=== PATIENT | female | born 1945 | race Caucasian/White ===

== ENCOUNTER → 2017-09-16 | Outpatient (CLI) | payer OTHER, MEDICARE | LOC: BMCIMAGING 12:19 | PROVIDERS: ATTEND Internal Medicine | DX: M43.12 Spondylolisthesis, cervical region (principal); M47.812 Spondylosis without myelopathy or radiculopathy, cervical region; M48.02 Spinal stenosis, cervical region; M81.0 Age-related osteoporosis without current pathological fracture ==

== ENCOUNTER → 2017-09-19 | Outpatient (CLI) | payer OTHER, MEDICARE | LOC: FIMAGING 13:24 | DX: Z12.31 Encounter for screening mammogram for malignant neoplasm of breast (principal) | CPT/HCPCS: G0202 ==

== ENCOUNTER → 2017-11-13 | Outpatient (CLI) | payer OTHER, MEDICARE | LOC: FIMAGING 10:47 | PROVIDERS: ATTEND Internal Medicine | DX: R92.8 Other abnormal and inconclusive findings on diagnostic imaging of breast (principal) ==

== ENCOUNTER → 2017-12-01 | Outpatient (CLI) | payer OTHER, MEDICARE ==
[~2017-12-01] MED LIST: BUPIVACAINE 0.5% 10 ML SDV ONE; LIDOCAINE 1% 300 MG/30 ML SDV ONE; THROMBIN (BOVINE) 5,000 UNIT VIAL TP ONE
== END ==
LOC: FIMAGING 07:24
PROVIDERS: ATTEND Internal Medicine
PROC: 0HBT3ZX Excision of Right Breast, Percutaneous Approach, Diagnostic (ICD-10-PCS; principal; 2017-12-01)
DX: N63.13 Unspecified lump in the right breast, lower outer quadrant (principal)

== ENCOUNTER 2017-12-19 08:20 | Day surgery (SDC) | payer OTHER, MEDICARE ==
[2017-12-19] MEDS ORDERED: ceFAZolin 2 GM/SWFI 2 GM/20 ML SYR IVP ONE (09:26)
[2017-12-19] MEDS ORDERED: LR 1,000 ML IV SCH (09:26)
[2017-12-19] MEDS ORDERED: LR 1,000 ML IV ONE (09:52)
[2017-12-19] MEDS ORDERED: BUPIVACAINE 0.25% 30 ML SDV ONE (11:38)
--- NOTE | 2017-12-19 13:02 | PDANEPAE ---
ANE History of Present Illness partial mastectomy ANE Past Medical History - Cardiovascular History Hx Hypertension: No Hx Arrhythmias: No Hx Chest Pain: No Hx Coronary Artery / Peripheral Vascular Disease: No Hx CHF / Valvular Disease: Yes Hx Palpitations: No Cardiovascular History Comment: MR - Pulmonary History Hx COPD: No Hx Asthma/Reactive Airway Disease: No Hx Recent Upper Respiratory Infection: No Hx Oxygen in Use at Home: No Hx Sleep Apnea: No Sleep Apnea Screening Result - Last Documented: Negative - Neurologic History Hx Cerebrovascular Accident: No Hx Seizures: No Hx Dementia: No - Endocrine History Hx Diabetes: No - Renal History Hx Renal Disorders: No - Liver History Hx Hepatic Disorders: No - Neurological & Psychiatric Hx Hx Neurological and Psychiatric Disorders: No - Cancer History Hx Cancer: Yes Cancer History Comment: ovarian. plasmoystic lymphoma - Congenital Disorder History Hx Congenital Disorders: No - GI History Hx Gastrointestinal Disorders: No - Other Health History Other Health History: none - Chronic Pain History Chronic Pain: No - Surgical History Prior Surgeries: previous biopsy ANE Review of Systems Review of Systems: - Exercise capacity METS (RN): 4 METS ANE Patient History - Allergies Allergies/Adverse Reactions: clindamycin Allergy (Intermediate, Verified 12/19/17 11:51) Other-Enter Comments Iodinated Contrast- Oral and IV Dye Allergy (Intermediate, Verified 12/19/17 11: 51) Other-Enter Comments meperidine HCl [From Demerol] Allergy (Mild, Verified 12/19/17 11:51) "wakes me up" - Home Medications Home Medications: NK [No Known Home Meds] 06/03/16 [Last Taken Unknown] - NPO status NPO Status: no food or drink >8 hours NPO Since - Liquids (Date): 12/18/17 NPO Since - Liquids (Time): 08:30 NPO Since - Solids (Date): 12/18/17 NPO Since - Solids (Time): 21:00 - Anes Hx Anes Hx: no prior problems - Smoking Hx Smoking Status: Never smoked - Alcohol Use Alcohol Use: None - Family Anes Hx Family Anes Hx: none Family Hx Anesthesia Complications: sister has N/V ANE Labs/Vital Signs - Vital Signs Blood Pressure: 150/73 Heart Rate: 82 Respiratory Rate: 16 O2 Sat (%): 94 Height: 170.18 cm Weight: 49.895 kg ANE Physical Exam - Airway Neck exam: FROM Mallampati Score: Class 2 Mouth exam: normal dental/mouth exam - Pulmonary Pulmonary: no respiratory distress, clear to auscultation - Cardiovascular Cardiovascular: regular rate and rhythym, no murmur, rub, or gallop - ASA Status ASA Status: III ANE Anesthesia Plan Anesthesia Plan: GA w LMA
[2017-12-19] MEDS ORDERED: PROPOFOL/EMULSION 500 MG/50 ML BOTTLE IV ONE (13:07)
[2017-12-19] MEDS ORDERED: PROPOFOL 200 MG/20 ML VIAL ONE (13:07)
[2017-12-19] MEDS ORDERED: fentaNYL 100 MCG/2 ML INJ ONE (13:07)
[2017-12-19] MEDS ORDERED: LIDOCAINE 2% 5 ML SDV ONE (13:15)
--- NOTE | 2017-12-19 13:17 | PDHPUP ---
History & Physical Update H&P update statement: This history and physical update is based on an assessment of the patient which was completed after admission or registration (within 24 hours), but prior to the surgery/procedure. H&P update: H&P reviewed & patient examined, no change in patient's condition since H&P completed
[2017-12-19] MEDS ORDERED: DEXAMETHASONE 4 MG/ML VIAL ONE (13:41)
[2017-12-19] MEDS ORDERED: ONDANSETRON 4 MG/2 ML VIAL ONE ×3 (13:57→14:31)
[2017-12-19] MEDS ORDERED: ACETAMINOPHEN 500 MG TAB PO PRN (14:25)
[2017-12-19] MEDS ORDERED: OXYCODONE/APAP 5/325 TAB PO PRN (14:25)
[2017-12-19] MEDS ORDERED: ONDANSETRON 4 MG/2 ML VIAL IVP PRN (14:25)
[2017-12-19] MEDS ORDERED: HYDROmorphONE/DILAUDID 1 MG/ML INJ IVP PRN (14:25)
[2017-12-19] MEDS ORDERED: NALOXONE HCL 0.4 MG/ML INJ IVP PRN (14:25)
[2017-12-19] MEDS ORDERED: HYDROCODONE/APAP 5/325 TAB PO PRN ×2 (14:25→15:28)
[2017-12-19] MEDS ORDERED: fentaNYL 100 MCG/2 ML INJ IVP PRN (14:25)
[2017-12-19] MEDS ORDERED: PROMETHAZINE HCL 25 MG/ML INJ IVP PRN (14:25)
[2017-12-19] MEDS ORDERED: AVITENE POWDER 1 GM JAR TP ONE (14:37)
--- NOTE | 2017-12-19 15:08 | POSTANESTH ---
Post Anesthetic Evaluation Cardiovascular Status: Normal, Stable, Similar to Pre-Op Cond Respiratory Status: Normal, Stable, Similar to Pre-op Cond. Level of Consciousness/Mental Status: Can Participate in Eval, Alert and Oriented Pain Control: Adequate, Prn Tx Ordered Nausea/Vomiting Control: Adequate, Prn Tx Ordered Complications Possibly Related to Anesthesia: None Noted
--- NOTE | 2017-12-19 15:33 | POSTOPPROG ---
Post Op Note Date of Operation: 12/19/17 Surgeon: Gómez Escalante (, FACS) Applications Analyst: Jay Addison RN-FA Anesthesiologist: Sundar Cordova MD Anesthesia: GET(General Endotracheal), LMA Pre-op Diagnosis: right breast cancer Post-op Diagnosis: same Procedure: right partial mastectomy/SLN bx/ Findings: 2 sentinel nodes neg by frozen Inf/Abcess present in the surg proc area at time of surgery?: No EBL: Minimal (25 ml) Specimen(s): right partial mastectomy + additional ant/superior skin margin 2 sentinel nodes, axillary
[2017-12-19 15:38] VITALS: PULSE 73; RESP 17; TEMP 94.6
[2017-12-19 16:11] VITALS: O2SAT 95
[2017-12-19 17:04] VITALS: BP 114/53
--- NOTE | 2017-12-19 22:58 | GOP ---
[f rep st] OPERATIVE REPORT DATE OF OPERATION: 12/19/2017 SURGEON: Gómez Escalante MD, FACS COMMUNICATIONS PROFESSOR: BLAINE Humphrey. ANESTHESIA: General endotracheal by laryngeal mask. ANESTHESIOLOGIST: Sundar Cordova MD. PREOPERATIVE DIAGNOSIS: Right breast carcinoma. POSTOPERATIVE DIAGNOSIS: Right breast carcinoma. PROCEDURE PERFORMED: 1. Right partial mastectomy. 2. [place] lymph node mapping and biopsy of right axillary lymph nodes x2. 3. Adjacent tissue transfer for immediate reconstruction. FINDINGS: 2 out of 2 sentinel nodes were negative by frozen section for evidence of malignancy. The primary right lower outer quadrant tumor was submitted for specimen mammogram, containing the previously deployed clip. Because this was close to the skin surface, a second portion of skin at the superior anterior margin was excised and submitted for permanent section. ESTIMATED BLOOD LOSS: 25 mL. DESCRIPTION OF PROCEDURE: After informed consent was obtained, the patient was brought to the operating room and placed under general anesthesia. The right breast was prepped and draped in the usual sterile fashion. Before proceeding, a time-out identification of patient was performed. She had undergone preoperative sentinel lymph node injection but did not visualize sentinel nodes on lymphoscintigraphy. The gamma detector was used to identify the point of maximum activity in the lower axilla, and the skin was marked with a marking pen. The breast mass was palpable and was in the lower-outer quadrant with some puckering of the skin. Before proceeding, a time-out identification of the patient was performed. The axillary site was infiltrated with 0.25% Marcaine, incised transversely, and dissection carried out through the skin, subcutaneous tissues, and deep axillary fascia. Hemostasis was secured with cautery. The Neoprobe-Gamma Detector was used to guide dissection to the first sentinel node which had counts over 2000. The node appeared mildly fatty replaced and did not appear suspicious. It measured approximately 1 x 1.5 cm. This was labeled sentinel node #1. Lymphovascular structures were hemoclipped and divided, and the node was delivered from the field. A second sentinel node with counts in the 250 counts per minute range was identified, smaller than the first. This was excised in a similar fashion and submitted for frozen section. Hemostasis appeared secure within the axilla. While we were waiting for the results of the sentinel node, right partial mastectomy was performed as follows. A skin incision was marked on the skin with a marking pen and infiltrated with 0.25% Marcaine. An elliptical incision was made encompassing the tumor as well as the dimpling of the skin. After the incision was made, deep dissection was performed using primarily cautery excising the mass with a rim of normal surrounding breast tissue of approximately 10 to 15 mm in thickness. This extended to the deep margin of the breast but did not include the pectoralis fascia. Hemostasis was secured with cautery. The specimen was removed from the field and tagged for orientation with a MarginMarker kit, individually identifying the anterior, posterior, superior, inferior, medial, and lateral margins. The superior anterior margin appeared closest at the skin level, and additional skin was excised cephalad measuring approximately 6 to 7 mm in width , and this was marked carefully with red ink along the final superior anterior margin. The breast cavity was partially closed using adjacent tissue transfer technique as follows. The deep subcutaneous tissues and breast tissue were dissected from the superficial subcutaneous fatty tissues circumferentially using cautery dissection. There was the least amount of tissue present at the inframammary fold, and so less mobilization occurred here, and most of the mobilization occurred up to the subareolar plane cephalad and for 2 to 3 cm in all directions medial, lateral, and inferiorly. These liberated breast tissues were then used to cantilever over the defect. Topical Avitene was placed within the cavity to assist with hemostasis and to provide some bulk to the cavity. The adjacent tissue transfer was completed with approximation of the flaps with interrupted 3-0 Monocryl suture. Subcutaneous tissues were closed with 3-0 Monocryl suture, and the skin of both incisions was closed with 4-0 Monocryl suture in a subcuticular fashion. Specimen mammogram had been reported to contain the clip and tumor, and the axillary nodes had been reported to be negative by frozen section. Topical Mastisol and Steri-Strips were applied. Sterile dressings were placed. The patient was returned extubated to the recovery room in satisfactory condition. Needle, sponge, and instrument counts were correct. COMPLICATIONS: None. /[id number]/MODL MTDD
== END 2017-12-19 17:00 | disposition home or self-care (01) ==
LOC: FSGY 08:20
PROVIDERS: ATTEND Surgery
PROC: 0HBT0ZZ Excision of Right Breast, Open Approach (ICD-10-PCS; principal; 2017-12-19 11:30)
PROC: 07B50ZX Excision of Right Axillary Lymphatic, Open Approach, Diagnostic (ICD-10-PCS; principal; 2017-12-19 11:30)
DX: C50.911 Malignant neoplasm of unspecified site of right female breast (principal)
CPT/HCPCS: J0690; J1100; J2405; J2704; J3010

== ENCOUNTER → 2017-12-19 | Outpatient (CLI) | payer OTHER, MEDICARE | LOC: FIMAGING 07:15 | PROVIDERS: ATTEND Surgery | DX: C50.911 Malignant neoplasm of unspecified site of right female breast (principal) | CPT/HCPCS: 76098; 78195; A9520 ==

== ENCOUNTER → 2018-09-25 | Outpatient (CLI) | payer OTHER, MEDICARE | LOC: BMCIMAGING 12:05 | PROVIDERS: ATTEND Emergency Medicine | DX: M54.5 Low back pain (principal) ==

== ENCOUNTER 2018-12-25 07:16 | Inpatient (IN) | payer OTHER, MEDICARE ==
--- NOTE | 2018-12-25 07:29 | EDPHY ---
H & P Stated Complaint: Chest Pain Time Seen by Provider: 12/25/18 07:29 - Personal History Current Tetanus/Diphtheria Vaccine: Yes - Medical/Surgical History Hx Asthma: No Hx Chronic Respiratory Disease: No Hx Diabetes: No Hx Cardiac Disease: No Hx Renal Disease: No Hx Cirrhosis: No Hx Alcoholism: No Other PMH: lymphoma - Social History Smoking Status: Never smoked Constitutional: Initial Vital Signs Temperature (C) 36.9 C 12/25/18 07:20 Heart Rate 89 12/25/18 07:20 Respiratory Rate 18 12/25/18 07:20 Blood Pressure 167/91 H 12/25/18 07:20 O2 Sat (%) 99 12/25/18 07:20 O2 Delivery Mode Room Air Allergies/Adverse Reactions: clindamycin Allergy (Intermediate, Verified 12/25/18 07:25) Other-Enter Comments Iodinated Contrast- Oral and IV Dye Allergy (Intermediate, Verified 12/25/18 07: 25) Other-Enter Comments meperidine HCl [From Demerol] Allergy (Mild, Verified 12/25/18 07:25) "wakes me up" Home Medications: Medication Instructions Recorded Cholecalciferol Vit D3 [Vitamin D3 1,000 units PO DAILY 12/25/18 (*)] Cyanocobalamin [Vitamin B12 (*)] 1,000 mcg PO DAILY 12/25/18 Herbals/Supplements -Info Only 1 ea PO DAILY 12/25/18 Ibuprofen [Motrin (*)] 200 mg PO DAILY PRN 12/25/18 Tears/Dextran 70/Hypromellose 1 drop EACHEYE Q2 PRN 12/25/18 [Natural Balance Tears (*)] Medical Decision Making - Diagnostics Imaging Results: Imaging Impressions Extremity Venous Study 12/25/18 07:40 Impression: No evidence of vein thrombosis in the left arm. Results called and discussed with Philippe Ruth MD at 12/25/2018 8:56. Chest/Thorax CTA 12/25/18 08:15 Impression: No acute pulmonary embolus. Findings and recommendations discussed with Philippe Ruth MD at 945 hour, . Imaging: Discussed imaging studies w/ commis chef Radiologist ED Course/Re-evaluation: CHIEF COMPLAINT: Chest pain, left arm pain, rash HISTORY OF PRESENT ILLNESS: The patient is a 73 y/o female with a history of breast cancer arriving with her complaining of left arm pain for the last 10 days and chest pain and rash onset this morning. She had a blood draw performed 1.5 weeks ago in her left AC and has had persistent pain in that arm since then, sometimes associated with lightheadedness and nausea. This morning she woke with chest pain across her upper chest and a painful rash along her left upper back. She denies associated shortness of breath, vomiting, diarrhea, fever, syncope, weakness, paresthesias. She mentions a recent imaging study showed splenomegaly. REVIEW OF SYSTEMS: A comprehensive 10 system review of systems is otherwise negative aside from elements mentioned in the history of present illness and medical decision making. PHYSICAL EXAM: HR, BP, O2 Sat, RR. Temp noted General Appearance: Alert, well hydrated, appropriate, and non-toxic appearing. Head: Atraumatic without scalp tenderness or obvious injury Eyes: Pupils equal, round, reactive to light and accommodation, EOMI, no trauma , no injection. Nose: Atraumatic, no rhinorrhea, clear. Throat: There is no erythema or exudates, no lesions, normal tonsils, mucus membranes moist. Neck: Supple, nontender, no lymphadenopathy. Respiratory: No retractions, no distress, no wheezes, and no accessory muscle use. Lungs are clear to auscultation bilaterally. Cardiovascular: Regular rate and rhythm, no murmurs, rubs, or gallops. Good capillary refill all extremities. Gastrointestinal: Abdomen is soft, nontender, non-distended, no masses, no rebound, no guarding, no peritoneal signs. Musculoskeletal: Normal active ROM of all extremities, atraumatic. Neurological: Alert, appropriate, and interactive. The patient has non-focal cranial nerves, motor, sensory, and cerebellar exam. Skin: Vesicular rash on erythematous base on left upper thoracic back in dermatome distribution, good turgor, no nodules on palpation. Past medical history: Shingles x3, right breast carcinoma, splenomegaly Past surgical history: Right partial mastectomy and lymph node biopsy with Dr. Escalante. Family history: Noncontributory Social history: at bedside. Nonsmoker. Prior medical records reviewed including surgical note 12/19/17. DIAGNOSTICS/PROCEDURES/CRITICAL CARE TIME: The 12 lead EKG was interpreted by myself. Sinus mechanism, rate 88. See hard copy and/or "tracemaster" electronic copy for interpretation. Left arm US: no DVT per Dr. Hua, radiologist. Chest CTA: negative DIFFERENTIAL DIAGNOSIS: The differential diagnosis for the patient's chest pain included but was not limited to myocardial ischemia, pulmonary embolus, chest wall pain, pleural inflammation, and pulmonary infectious causes. MEDICAL DECISION MAKING: This is a 73 y/o female with a history of breast cancer who presents with a 1.5-week history of left arm pain, nausea, and lightheadedness following a blood draw and today developed upper chest pain and a vesicular rash along her left upper thoracic back. This rash is consistent with shingles and appears only in one dermatome, which could be the cause of her chest and arm pain. Her left AC veins are soft, so I doubt superficial thrombophlebitis or DVT, but due to symptoms and cancer history will rule out with US. She has no reproducible chest tenderness and lungs are clear to auscultation. Plan for IV, labs, EKG, left arm US. 1000mg PO Valacyclovir ordered. 0815: POC sodium is 117, will confirm this with lab chemistries. D-dimer is elevated at 2.00. Chest CTA ordered. US in progress. Lab sodium confirms hyponatremia at 117. Urine osmolality ordered. No IV fluids have been administered yet and we will continue to hold these. Looking through past records, patient has been slightly hyponatremic previously around 125-130, but never this low. 0840: Reassessed patient and discussed findings. Recommended admission for hyponatremia, which she agrees to. Spoke with hospitalist service. Dr. Morgan accepts admission. Nephrology paged. Patient has an iodinated contrast allergy listed in her chart, but says in the remote past when she has had contrast she developed some lymph node soreness. She does not describe allergic reaction symptoms. We will not pretreat with Solumedrol, as this will cause issues with any future ACTH stim testing. 0905: Consulted with Dr. Mcfadden, nephrology. She agrees with treatment course and will consult during admission. CT angiography is unremarkable according to Dr. Neal. 1025: Patient is complaining of leg cramping. 1gm IV Magnesium Sulfate ordered. - Data Points Laboratory Results: Laboratory Results 12/25/18 07:40 12/25/18 07:40 12/25/18 12/25/18 12/25/18 08:13 07:45 07:40 WBC RBC Hgb POC Hgb 11.6 gm/dL L gm/dL (12.6-16.3) Hct POC Hct 34 % L % (38-47) MCV MCH MCHC RDW Plt Count MPV Neut % (Auto) Lymph % (Auto) [place] % (Auto) Eos % (Auto) Baso % (Auto) Nucleat RBC Rel Count Absolute Neuts (auto) Absolute Lymphs (auto) Absolute Monos (auto) Absolute Eos (auto) Absolute Basos (auto) Absolute Nucleated RBC Immature Gran % Seg Neutrophils % Band Neutrophils % Lymphocytes % Monocytes % Eosinophils % Basophils % Metamyelocytes % Myelocytes % Promyelocytes % Blast Cells % Immature Gran # Absolute Seg Neuts Absolute Band Neuts Absolute Lymphocytes Absolute Monocytes Absolute Eosinophils Absolute Basophils Absolute Metamyelocyte Absolute Myelocytes Absolute Promyelocytes Absolute Plasma Cells Nucleated RBCs Atypical Lymphocytes Absolute Blast Cells Plasma Cells % Platelet Estimate Polychromasia Hypochromasia Smear Review By D-Dimer POC Sodium 117 mEq/L L* mEq/L (135-145) Sodium 117 mEq/L L* mEq/L (135-145) POC Potassium 3.5 mEq/L mEq/L (3.3-5.0) Potassium 3.9 mEq/L mEq/L (3.5-5.2) POC Chloride 81 mEq/L L mEq/L (97-110) Chloride 83 mEq/L L mEq/L (97-110) Carbon Dioxide 21 mEq/l L mEq/l (22-31) POC Total CO2 22 mEq/L mEq/L (22-31) Anion Gap 13 mEq/L mEq/L (6-14) POC BUN 5 mg/dL L mg/dL (7-23) BUN 7 mg/dL mg/dL (7-23) Creatinine 0.4 mg/dL L mg/dL (0.6-1.0) POC Creatinine 0.4 mg/dL L mg/dL (0.6-1.0) Estimated GFR > 60 Glucose 100 mg/dL mg/dL (70-100) POC Glucose 98 mg/dL mg/dL (70-100) Calcium 8.8 mg/dL mg/dL (8.5-10.4) POC Troponin I 0.00 ng/mL ng/mL (0.00-0.08) 12/25/18 12/25/18 07:40 07:40 WBC 12.48 10^3/uL H 10^3/uL (3.80-9.50) RBC 3.53 10^6/uL L 10^6/uL (4.18-5.33) Hgb 10.4 g/dL L g/dL (12.6-16.3) POC Hgb Hct 30.0 % L % (38.0-47.0) POC Hct MCV 85.0 fL fL (81.5-99.8) MCH 29.5 pg pg (27.9-34.1) MCHC 34.7 g/dL g/dL (32.4-36.7) RDW 13.3 % % (11.5-15.2) Plt Count 160 10^3/uL 10^3/uL (150-400) MPV 10.2 fL fL (8.7-11.7) Neut % (Auto) Not Reported Lymph % (Auto) Not Reported [place] % (Auto) Not Reported Eos % (Auto) Not Reported Baso % (Auto) Not Reported Nucleat RBC Rel Count Not Reported Absolute Neuts (auto) Not Reported Absolute Lymphs (auto) Not Reported Absolute Monos (auto) Not Reported Absolute Eos (auto) Not Reported Absolute Basos (auto) Not Reported Absolute Nucleated RBC Not Reported Immature Gran % Not Reported Seg Neutrophils % 36.0 % % Band Neutrophils % 0.0 % % Lymphocytes % 57.0 % % Monocytes % 7.0 % % Eosinophils % 0.0 % % Basophils % 0.0 % % Metamyelocytes % 0.0 % % Myelocytes % 0.0 % % Promyelocytes % 0.0 % % Blast Cells % 0.0 % % Immature Gran # Not Reported Absolute Seg Neuts 4.49 10^3/uL 10^3/uL (1.70-6.50) Absolute Band Neuts 0.00 10^3/uL 10^3/uL (0.00-0.70) Absolute Lymphocytes 7.11 10^3/uL H 10^3/uL (1.00-3.00) Absolute Monocytes 0.87 10^3/uL H 10^3/uL (0.30-0.80) Absolute Eosinophils 0.00 10^3/uL L 10^3/uL (0.03-0.40) Absolute Basophils 0.00 10^3/uL L 10^3/uL (0.02-0.10) Absolute Metamyelocyte 0.00 10^3/mL 10^3/mL (0.00-0.00) Absolute Myelocytes 0.00 10^3/mL 10^3/mL (0.00-0.00) Absolute Promyelocytes 0.00 10^3/uL 10^3/uL (0.00-0.00) Absolute Plasma Cells 0.00 10^3/uL 10^3/uL (0.00-0.00) Nucleated RBCs 0 /100 WBC /100 WBC (0-0) Atypical Lymphocytes 2+ H Absolute Blast Cells 0.00 10^3/uL 10^3/uL (0.00-0.00) Plasma Cells % 0.0 % % Platelet Estimate ADEQUATE (ADEQ) Polychromasia 1+ H Hypochromasia 1+ H Smear Review By Pending D-Dimer 2.00 ug/mLFEU H ug/mLFEU (0.00-0.50) POC Sodium Sodium POC Potassium Potassium POC Chloride Chloride Carbon Dioxide POC Total CO2 Anion Gap POC BUN BUN Creatinine POC Creatinine Estimated GFR Glucose POC Glucose Calcium POC Troponin I Medications Given: Discontinued Medications Diphenhydramine HCl (Benadryl Injection) 25 mg IVP EDNOW ONE Stop: 12/25/18 09:03 Last Admin: 12/25/18 09:12 Dose: 25 mg Methylprednisolone Sodium Succinate (Solu-Medrol) 125 mg IVP EDNOW ONE Stop: 12/25/18 09:03 Last Admin: 12/25/18 09:39 Dose: Not Given Valacyclovir HCl (Valtrex) 1,000 mg PO EDNOW ONE Stop: 12/25/18 07:38 Last Admin: 12/25/18 07:47 Dose: 1,000 mg Point of Care Test Results: Chemistry 12/25/18 12/25/18 08:13 07:45 POC Sodium 117 mEq/L L* mEq/L (135-145) POC Potassium 3.5 mEq/L mEq/L (3.3-5.0) POC Chloride 81 mEq/L L mEq/L (97-110) POC Total CO2 22 mEq/L mEq/L (22-31) POC BUN 5 mg/dL L mg/dL (7-23) POC Creatinine 0.4 mg/dL L mg/dL (0.6-1.0) POC Glucose 98 mg/dL mg/dL (70-100) POC Troponin I 0.00 ng/mL ng/mL (0.00-0.08) ISTAT H&H 12/25/18 08:13 POC Hgb 11.6 gm/dL L gm/dL (12.6-16.3) POC Hct 34 % L % (38-47) Departure - Departure Disposition: [facility] Inpatient Acute Clinical Impression: Hyponatremia Chest pain Qualifiers: Chest pain type: other chest pain Qualified Code(s): R07.89 - Other chest pain Condition: Fair Report Scribed for: Philippe Ruth Report Scribed by: Geneva Albert Date of Report: 12/25/18 Time of Report: 07:49
[2018-12-25] MEDS ORDERED: valACYclovir 500 MG TAB PO ONE (07:37)
[2018-12-25 08:19] LABS: PLATELET COUNT 160 10^3/uL (150-400)
[2018-12-25] MEDS ORDERED: methylPREDNISolone SOD SUCC 125 MG/2 ML VIAL ONE (09:02)
[2018-12-25] MEDS ORDERED: methylPREDNISolone SOD SUCC 125 MG/2 ML VIAL IVP ONE (09:02)
[2018-12-25] MEDS ORDERED: IOHEXOL 350mgI/ML (OMNIPAQUE) 150 ML BTL IV ONE (09:18)
[2018-12-25] MEDS ORDERED: MAGNESIUM SULF 1 GM/DEXTROSE 100 ML IV ONE (10:25)
[2018-12-25] MEDS ORDERED: ACETAMINOPHEN 325 MG TAB PO PRN (11:17)
[2018-12-25] MEDS ORDERED: ONDANSETRON DISINTEGRATING 4 MG TAB PO PRN (11:17)
[2018-12-25] MEDS ORDERED: ONDANSETRON 4 MG/2 ML VIAL IVP PRN (11:17)
[2018-12-25] MEDS ORDERED: TEARS/DEXTRAN 70/HYPROMELLOSE 15 ML OPHT.BTL EACHEYE PRN (11:18)
[2018-12-25] MEDS ORDERED: IBUPROFEN 200 MG TAB PO PRN (11:18)
--- NOTE | 2018-12-25 11:18 | CPEKG ---
Test Reason : OPEN Blood Pressure : / mmHG Vent. Rate : 088 BPM Atrial Rate : 088 BPM P-R Int : 136 ms QRS Dur : 089 ms QT Int : 367 ms P-R-T Axes : 082 072 067 degrees QTc Int : 444 ms Sinus rhythm Abnormal R-wave progression, early transition Confirmed by Philippe Ruth ([id number]) on 12/25/2018 11:18:00 AM Referred By: Philippe Ruth Confirmed By:Philippe Ruth
--- NOTE | 2018-12-25 11:29 | PDCONSULT ---
[employer] Note: Assessment/Plan: Hyponatremia: chronic, seems like she has large fluid intake and poor solute intake. However, she may also have some underlying degree of SIADH as well. - Will fluid restrict to 1200ml daily. - Will give 2g sodium chloride orally now. - Encouraged pt to eat. - Will continue to monitor q3h for now. Thank you for the interesting consult. Nephrology will continue to follow, please call if you have any additional questions or concerns. H & P Stated Complaint: Chest Pain Time Seen by Provider: 12/25/18 07:29 HPI/ROS: HPI: Ms. Castillo is a 73 yo F with h/o hyponatremia who presents to ER today with complaints of chest pain and was found to have hyponatremia with sodium down to 117. She has chronic hyponatremia, for the past 9 years Na has ranged 127-132, was down to 125 when labs checked 10 days ago, but pt not aware of that. Pt states that she has not been taking any diuretics. She has been on NSAIDs for the past few days for pain in her L arm, has been taking an NSAID every 6-8 hours at home for at least 4 days. She drinks a lot of water at home, sounds like at least 2.5L that she can tell me and probably more than that. She does not eat very much, which explains such low solute levels in her. ROS: positive per HPI, rest of 10-point ROS negative Source: Patient - Personal History Current Tetanus/Diphtheria Vaccine: Yes - Medical/Surgical History Hx Asthma: No Hx Chronic Respiratory Disease: No Hx Diabetes: No Hx Cardiac Disease: No Hx Renal Disease: No Hx Cirrhosis: No Hx Alcoholism: No Other PMH: lymphoma. R breast carcinoma s/p partial mastectomy in 12/2017 - Family History Significant Family History: Other (mother with hyponatremia) - Social History Smoking Status: Never smoked - Physical Exam Exam: General: alert and oriented, no acute distress Eyes: EOMI, PERRL OP: Clear, MMM CV: RRR, no edema BLE Resp: CTA bilat, nonlabored respirations on RA Abd: Soft, NT/ND Neuro: CN II-XII Grossly intact, no asterixis Psych: cooperative, appropriate mood and affect Skin: C/D/I, +shingles on L upper back Constitutional: Initial Vital Signs Temperature (C) 36.9 C 12/25/18 07:20 Heart Rate 89 12/25/18 07:20 Respiratory Rate 18 12/25/18 07:20 Blood Pressure 167/91 H 12/25/18 07:20 O2 Sat (%) 99 12/25/18 07:20 O2 Delivery Mode Room Air Allergies/Adverse Reactions: clindamycin Allergy (Intermediate, Verified 12/25/18 07:25) Other-Enter Comments Iodinated Contrast- Oral and IV Dye Allergy (Intermediate, Verified 12/25/18 07: 25) Other-Enter Comments meperidine HCl [From Demerol] Allergy (Mild, Verified 12/25/18 07:25) "wakes me up" Home Medications: Medication Instructions Recorded Cholecalciferol Vit D3 [Vitamin D3 1,000 units PO DAILY 12/25/18 (*)] Cyanocobalamin [Vitamin B12 (*)] 1,000 mcg PO DAILY 12/25/18 Herbals/Supplements -Info Only 1 ea PO DAILY 12/25/18 Ibuprofen [Motrin (*)] 200 mg PO DAILY PRN 12/25/18 Tears/Dextran 70/Hypromellose 1 drop EACHEYE Q2 PRN 12/25/18 [Natural Balance Tears (*)] Lab and Imaging 12/25/18 07:40 12/25/18 07:40 WBC 12.48 10^3/uL (3.80-9.50) H 12/25/18 07:40 RBC 3.53 10^6/uL (4.18-5.33) L 12/25/18 07:40 Hgb 10.4 g/dL (12.6-16.3) L 12/25/18 07:40 POC Hgb 11.6 gm/dL (12.6-16.3) L 12/25/18 08:13 Hct 30.0 % (38.0-47.0) L 12/25/18 07:40 POC Hct 34 % (38-47) L 12/25/18 08:13 MCV 85.0 fL (81.5-99.8) 12/25/18 07:40 MCH 29.5 pg (27.9-34.1) 12/25/18 07:40 MCHC 34.7 g/dL (32.4-36.7) 12/25/18 07:40 RDW 13.3 % (11.5-15.2) 12/25/18 07:40 Plt Count 160 10^3/uL (150-400) 12/25/18 07:40 MPV 10.2 fL (8.7-11.7) 12/25/18 07:40 Neut % (Auto) Not Reported 12/25/18 07:40 Lymph % (Auto) Not Reported 12/25/18 07:40 Dane % (Auto) Not Reported 12/25/18 07:40 Eos % (Auto) Not Reported 12/25/18 07:40 Baso % (Auto) Not Reported 12/25/18 07:40 Nucleat RBC Rel Count Not Reported 12/25/18 07:40 Absolute Neuts (auto) Not Reported 12/25/18 07:40 Absolute Lymphs (auto) Not Reported 12/25/18 07:40 Absolute Monos (auto) Not Reported 12/25/18 07:40 Absolute Eos (auto) Not Reported 12/25/18 07:40 Absolute Basos (auto) Not Reported 12/25/18 07:40 Absolute Nucleated RBC Not Reported 12/25/18 07:40 Immature Gran % Not Reported 12/25/18 07:40 Seg Neutrophils % 36.0 % 12/25/18 07:40 Band Neutrophils % 0.0 % 12/25/18 07:40 Lymphocytes % 57.0 % 12/25/18 07:40 Monocytes % 7.0 % 12/25/18 07:40 Eosinophils % 0.0 % 12/25/18 07:40 Basophils % 0.0 % 12/25/18 07:40 Metamyelocytes % 0.0 % 12/25/18 07:40 Myelocytes % 0.0 % 12/25/18 07:40 Promyelocytes % 0.0 % 12/25/18 07:40 Blast Cells % 0.0 % 12/25/18 07:40 Immature Gran # Not Reported 12/25/18 07:40 Absolute Seg Neuts 4.49 10^3/uL (1.70-6.50) 12/25/18 07:40 Absolute Band Neuts 0.00 10^3/uL (0.00-0.70) 12/25/18 07:40 Absolute Lymphocytes 7.11 10^3/uL (1.00-3.00) H 12/25/18 07:40 Absolute Monocytes 0.87 10^3/uL (0.30-0.80) H 12/25/18 07:40 Absolute Eosinophils 0.00 10^3/uL (0.03-0.40) L 12/25/18 07:40 Absolute Basophils 0.00 10^3/uL (0.02-0.10) L 12/25/18 07:40 Absolute Metamyelocyte 0.00 10^3/mL (0.00-0.00) 12/25/18 07:40 Absolute Myelocytes 0.00 10^3/mL (0.00-0.00) 12/25/18 07:40 Absolute Promyelocytes 0.00 10^3/uL (0.00-0.00) 12/25/18 07:40 Absolute Plasma Cells 0.00 10^3/uL (0.00-0.00) 12/25/18 07:40 Nucleated RBCs 0 /100 WBC (0-0) 12/25/18 07:40 Atypical Lymphocytes 2+ H 12/25/18 07:40 Absolute Blast Cells 0.00 10^3/uL (0.00-0.00) 12/25/18 07:40 Plasma Cells % 0.0 % 12/25/18 07:40 Platelet Estimate ADEQUATE (ADEQ) 12/25/18 07:40 Polychromasia 1+ H 12/25/18 07:40 Hypochromasia 1+ H 12/25/18 07:40 D-Dimer 2.00 ug/mLFEU (0.00-0.50) H 12/25/18 07:40 POC Sodium 117 mEq/L (135-145) L* 12/25/18 08:13 Sodium 117 mEq/L (135-145) L* 12/25/18 07:40 POC Potassium 3.5 mEq/L (3.3-5.0) 12/25/18 08:13 Potassium 3.9 mEq/L (3.5-5.2) 12/25/18 07:40 POC Chloride 81 mEq/L (97-110) L 12/25/18 08:13 Chloride 83 mEq/L (97-110) L 12/25/18 07:40 Carbon Dioxide 21 mEq/l (22-31) L 12/25/18 07:40 POC Total CO2 22 mEq/L (22-31) 12/25/18 08:13 Anion Gap 13 mEq/L (6-14) 12/25/18 07:40 POC BUN 5 mg/dL (7-23) L 12/25/18 08:13 BUN 7 mg/dL (7-23) 12/25/18 07:40 Creatinine 0.4 mg/dL (0.6-1.0) L 12/25/18 07:40 POC Creatinine 0.4 mg/dL (0.6-1.0) L 12/25/18 08:13 Estimated GFR > 60 12/25/18 07:40 Glucose 100 mg/dL (70-100) 12/25/18 07:40 POC Glucose 98 mg/dL (70-100) 12/25/18 08:13 Serum Osmolality 184 mosmo/kg (280-297) L 12/25/18 09:47 Calcium 8.8 mg/dL (8.5-10.4) 12/25/18 07:40 POC Troponin I 0.00 ng/mL (0.00-0.08) 12/25/18 07:45 Urine Osmolality 177 mosmo/kg (300-900) L 12/25/18 09:47 Ur Random Creatinine 16.5 mg/dL 12/25/18 09:47 U Random Total Protein 21 mg/dL (0-11) H 12/25/18 09:47 Ur Random Sodium 32 mEq/L (30-90) 12/25/18 09:47 Ur Random Potassium 15.7 mEq/L (0.5-35.0) 12/25/18 09:47
[2018-12-25] MEDS ORDERED: SODIUM CHLORIDE 1,000 MG TAB PO ONE (11:30)
[2018-12-25] MEDS: GABAPENTIN 100 MG CAP PO SCH ×2 (12:08→16:12)
--- NOTE | 2018-12-25 12:11 | GHP ---
[f rep st] HISTORY AND PHYSICAL DATE OF ADMISSION: 12/25/2018 The patient is a pleasant 73-year-old female with a history of breast cancer status post partial righ t mastectomy, as well as chronic hyponatremia, who presents with arm pain for a number of days. Ther e is also some chest pain present. She also complained of some generalized weakness. She denies recent nausea, vomiting, diarrhea, fever, chills. She has a chronically elevated white co unt is found to have an enlarged spleen. She did have an IV in her left arm in the last couple of weeks. She notes her diet, she is a moderate to heavy water drinker with what sounds like probable light t and poor solute intake. She does not take diuretics or an SSRI or any antipsychotics. REVIEW OF SYSTEMS: Complete 10-point review of systems conducted negative except as noted in the HPI . PAST MEDICAL HISTORY: Breast cancer, status post lumpectomy without chemo, splenomegaly, chronic hyp onatremia. ALLERGIES: Clindamycin, Demerol, iodinated contrast, remote, and it was not anaphylaxis. HOME MEDICATIONS: Tears, ibuprofen, vitamin B12, vitamin D3. SOCIAL HISTORY: No tobacco, no alcohol. FAMILY HISTORY: Parents . PHYSICAL EXAM: PRESENTING VITALS: Temp 36.9, blood pressure 167/91, pulse 89, breathing 18 times a minute, 99% on room air. GENERAL: In no acute distress. HEENT: Sclerae anicteric. Oropharynx javier ar. Mucous membranes moist. NECK: Supple. No lymphadenopathy or JVD. LUNGS: Clear to auscultati on bilaterally. HEART: S1, S2. ABDOMEN: Soft, nontender, nondistended. LOWER EXTREMITIES: No silvia ma. SKIN: Shows an erythematous rash in the C5 distribution of the left side; it does not cross the midline. No vesicles as of yet. NEUROLOGIC: Nonfocal. LABS: Sodium 117, potassium 3.9, chloride 83, bicarb 21, BUN 7, creatinine 0.4, glucose is 100. Tro ponin is 0.00. Serum osmoles are low at 184. D-dimer is elevated at 2. Urine osmoles are 177, urin e sodium is 32, white count 12.5, which is about normal for her. Hemoglobin 10, hematocrit 30, plate lets 160,000. CTA of the chest images reviewed and interpreted by me shows no pulmonary embolism, tiny pulmonary no dule, left lung. EKG interpreted by me, sinus at 88 with normal axis and intervals. No ST or T-wave changes. There is an ultrasound of the right upper extremity showing no DVT. We discussed the case with Dr. Philippe Ruth and Dr. Eunice Mcfadden. ASSESSMENT/PLAN: 73-year-old female with chronic hyponatremia who presents with worsening hyponatrem ia and zoster. 1. Hyponatremia. This is almost certainly poor solute intake. There may be a component of underlyi ng SIADH. At this point in time, the patient is euvolemic and seeing with Dr. Mcfadden, we will follow t his frequently in the step-down unit and give her some salt tablets. The goal would be to correct it to about the mid 120s by tomorrow morning, probably 124 or less. 2. Zoster. I think this is the source of her arm pain. I will start her on acyclovir 10 mg/kg q.8, as well as some Neurontin. 3. Breast cancer. Will follow. 4. Pulmonary nodule. It sounds like one of these is stable. Will follow this over time. 5. Hypertension. This is mild. Will follow. 6. Prophylaxis. Low molecular heparin indicated. DISPOSITION: Step-down unit. 40 minutes critical care. /[id number]/MODL
[2018-12-25] MEDS: D5W IV SCH ×2 (16:38→16:42)
[2018-12-25] MEDS: ACYCLOVIR IV SCH ×2 (16:38→16:42)
--- NOTE | 2018-12-25 16:39 | PDMN ---
Medical Necessity Medical necessity: Pt meets IP criteria as of 12/25/2018 per and MCG MG-SIC ( Systemic or infectious condition GRG); est los > 2 mn for ongoing tx and management of hyponatremia (na 117) with weakness and chest pain as well as herpes zoster; requiring serial labs, IVF, acyclovir, pain management, and management of other conditions including breast cancer, stable pulmonary nodule , and HTN
[2018-12-26] MEDS ORDERED: SODIUM CHLORIDE 1,000 MG TAB PO ONE ×2 (00:15→10:14)
[2018-12-26] MEDS: D5W IV SCH ×2 (00:17→07:27)
[2018-12-26] MEDS: ACYCLOVIR IV SCH ×2 (00:17→07:27)
[2018-12-26] MEDS: GABAPENTIN 100 MG CAP PO SCH ×3 (00:18→16:44)
[2018-12-26 05:16] LABS: PLATELET COUNT 146 10^3/uL (150-400)
[2018-12-26] MEDS: CHOLECALCIFEROL VIT D3 1,000 UNITS TAB PO SCH ×2 (08:27→08:42)
[2018-12-26] MEDS ORDERED: POTASSIUM CL 20 MEQ TAB PO ONE (08:44)
[2018-12-26] MEDS ORDERED: ENOXAPARIN 40 MG/0.4 ML SYR SC SCH (09:00)
[2018-12-26] MEDS ORDERED: CYANO/VITAMIN B12 1000 MCG TAB PO SCH (09:00)
[2018-12-26] MEDS ORDERED: Herbals/Supplements -Info Only PO SCH (09:00)
--- NOTE | 2018-12-26 10:29 | SOAPPROG ---
SOAP Progress Note Assessment/Plan: Assessment/Plan: Hyponatremia: chronic, seems like she has large fluid intake and poor solute intake. However, she may also have some underlying degree of SIADH as well. Na up to 122 this am but repeat back down to 120. - Will continue fluid restriction of 1200ml daily, encouraged her to include all fluid in that restriction. - Will give an additional 2g salt tabs orally now. - Encouraged pt to eat more salty foods and not just eat fruit. - Will continue to monitor q4h for now. Subjective: No acute events overnight. Pt is eating some breakfast this am but again eating fruits and having fruit smoothies, not eating salt. She feels fine and wants to go home, has no complaint today. Objective: Vital Signs Temp Pulse Resp BP Pulse Ox 36.6 C 84 16 127/51 H 98 12/26/18 08:20 12/26/18 08:20 12/26/18 08:20 12/26/18 08:20 12/26/18 08:20 Laboratory Results 12/26/18 05:10 12/26/18 08:30 12/25/18 12/26/18 12/27/18 05:59 05:59 05:59 Intake Total 600 Output Total 550 Balance 50 General: alert and oriented, no acute distress Eyes: EOMI, PERRL OP: Clear CV: RRR Resp: nonlabored respirations on RA Abd: Soft, NT/ND Ext: no edema BLE Neuro: CN II-XII Grossly intact, no asterixis Psych: cooperative ICD10 Worksheet Patient Problems: Problems Problem Status Onset Chest pain Acute Hyponatremia Acute
[2018-12-26] MEDS ORDERED: valACYclovir 500 MG TAB PO SCH ×2 (12:30→14:00)
--- NOTE | 2018-12-26 12:30 | HOSPPROG ---
Hospitalist Progress Note Assessment/Plan: 73 yo F w zoster, acute on chronic hyponatremia hyponatremia: poor solute +/- SIADH continue salt tabs would like to see durably in mid 120's prior to dc should be on salt tabs add ensure shingles: change to valacyclovir neurontin 1 dermatome proph: ambulatory dispo: to floor Subjective: case d/w dr fountain. Na improved. afebrile Objective: Vital Signs Temp Pulse Resp BP Pulse Ox 36.6 C 84 16 127/51 H 98 12/26/18 08:20 12/26/18 08:20 12/26/18 08:20 12/26/18 08:20 12/26/18 08:20 Laboratory Results 12/26/18 05:10 12/26/18 08:30 12/25/18 12/26/18 12/27/18 05:59 05:59 05:59 Intake Total 600 Output Total 550 Balance 50 - Physical Exam Constitutional: no apparent distress, appears nourished Eyes: PERRL, anicteric sclera Ears, Nose, Mouth, Throat: moist mucous membranes, hearing normal Cardiovascular: regular rate and rhythym, no murmur, rub, or gallop Respiratory: no respiratory distress, no rales or rhonchi Gastrointestinal: normoactive bowel sounds, soft, non-tender abdomen Genitourinary: No aguirre in urethra Skin: warm, other (zoster rash R shoulder. no vesicles) Musculoskeletal: full muscle strength Neurologic: AAOx3 Psychiatric: interacting appropriately ICD10 Worksheet Patient Problems: Problems Problem Status Onset Chest pain Acute Hyponatremia Acute
--- NOTE | 2018-12-26 15:59 | ASMTCMCOM ---
CM Note CM Note Notes: Pt is a 73 yo F, presents with hyponatremia, hypochloremia, new onset shingles. Pt has a histroy of breast cancer status post lumpectomy without chemo, spelnomegaly, and chronic hyponatremia. Pt's is supportive. No therapies ordered at this time, discharge needs TBD. CM to follow. Plan: TBD Date Signed: 12/26/2018 03:59 PM Electronically Signed By:BEATA Zavaleta
[2018-12-26 17:13] VITALS: BP 121/73
--- NOTE | 2018-12-27 05:35 | GDS ---
[f rep st] DISCHARGE SUMMARY DISCHARGE DIAGNOSES: 1. Acute on chronic hyponatremia. 2. Zoster. Please see admission history and physical by Dr. Sukhwinder Morgan. The patient presented with arm pain . There was no evidence of DVT or PE. She had a zoster rash on her right scapula and was initiated on acyclovir and transitioned to valacyclovir. She was found have a sodium of 117 on presentation. I reviewed her sodiums over the course of the last 8 years and her baseline is about the mid 120s. I t was 125 on the of this month, 127 in April. The etiology of this is low solute intake with perh aps some SIADH. She was managed conservatively with fluid restriction and salt tablets and it jesus t o 123. She is very anxious for discharge and is therefore discharged. I did discuss this plan with Nephrology who followed her while in the hospital. She is discharged on three times daily salt tablets 1200 cc of fluid restriction on an outpatient followup with Nephrolog y and her primary care physician. /[id number]/MODL
== END 2018-12-26 18:24 | disposition home or self-care (01) | DRG 641 ==
LOC: F2N 15:50 → F3N 12-26 14:36
PROVIDERS: ADMIT Internal Medicine; ATTEND Internal Medicine
DX: E87.1 Hypo-osmolality and hyponatremia (principal); B02.9 Zoster without complications; R91.1 Solitary pulmonary nodule; I10 Essential (primary) hypertension; Z85.3 Personal history of malignant neoplasm of breast
CPT/HCPCS: 82435-PO; 82565-PO; 82947-PO; 84132-PO; 84295-PO; 84484-ER; 84520-PO; 85014-ER; 96365; J0133; J1200; J1650; J2930; J3475; Q9967

== ENCOUNTER → 2019-02-10 | Outpatient (CLI) | payer OTHER, MEDICARE | LOC: FIMAGING 12:39 | PROVIDERS: ATTEND Internal Medicine | DX: Z13.820 Encounter for screening for osteoporosis (principal); M81.0 Age-related osteoporosis without current pathological fracture ==